=== PATIENT | male | born 1970 | race Caucasian/White ===

== ENCOUNTER → 2017-06-07 | Outpatient (CLI) | payer OTHER | END | disposition home or self-care (01) | LOC: CPPFTMAIN 12:24 | PROVIDERS: ATTEND Internal Medicine Critical Care Medicine | DX: I42.9 Cardiomyopathy, unspecified (principal); R94.2 Abnormal results of pulmonary function studies; R06.02 Shortness of breath | CPT/HCPCS: 94620 ==

== ENCOUNTER → 2023-07-18 | Outpatient (CLI) | payer OTHER ==
--- NOTE | 2023-07-18 15:39 | XR ---
EXAMINATION TYPE: XR elbow complete RT DATE OF EXAM: 07/18/2023 COMPARISON: None HISTORY: Pain TECHNIQUE: 3 view right elbow FINDINGS: Radius aligns normally with the humerus. Anterior fat-pad is normal. No elevation posterior fat pad is evident. No acute displaced fractures are evident. Follow up exams can be performed 7-10 days from acute trauma for continued pain. IMPRESSION: 1. Normal three-view right elbow
[2023-07-18 20:26] LABS: INR 1.59 sec (0.93-1.11); Prothrombin Time 16.7 sec (9.9-11.9)
== END | disposition home or self-care (01) ==
LOC: RADXRMAIN 15:10
PROVIDERS: ATTEND Family Medicine
DX: M25.521 Pain in right elbow (principal)
CPT/HCPCS: 85610

== ENCOUNTER → 2023-09-13 | Outpatient (CLI) | payer OTHER ==
[2023-09-13 19:34] LABS: ALT 26 U/L (10-49); AST 26 U/L (14-35); Albumin 4.7 g/dL (3.8-4.9); Albumin/Globulin Ratio 1.57 Ratio (1.60-3.17); Alkaline Phosphatase 75 U/L (41-126); Blood Urea Nitrogen 17.1 mg/dL (9.0-27.0); Calcium 9.5 mg/dL (8.7-10.3); Carbon Dioxide 29.7 mmol/L (21.6-31.8); Chloride 97 mmol/L (96-109); Chol/HDL Ratio 2.65 Ratio; Glucose 91 mg/dL (70-110); LDL Cholesterol,Calculated 93.7 mg/dL (0.0-131.0); Potassium 4.5 mmol/L (3.5-5.5); Sodium 137 mmol/L (135-145); Total Bilirubin 0.7 mg/dL (0.3-1.2); Total Protein 7.7 g/dL (6.2-8.2)
[2023-09-14 03:55] LABS: INR 3.34 sec (0.93-1.11); Prothrombin Time 33.3 sec (9.9-11.9)
== END | disposition home or self-care (01) ==
LOC: LABWHC1 13:53
PROVIDERS: ATTEND Family Medicine
DX: Q87.40 Marfan syndrome, unspecified (principal); M54.9 Dorsalgia, unspecified; R53.82 Chronic fatigue, unspecified
CPT/HCPCS: 36415; 80053; 80061; 84402; 85610

== ENCOUNTER → 2024-06-17 | Outpatient (CLI) | payer OTHER ==
[2024-06-17 18:58] LABS: Chol/HDL Ratio 3.09 Ratio; LDL Cholesterol,Calculated 113.3 mg/dL (0.0-131.0); VLDL Calculation 18.54 mg/dL (5.00-40.00)
== END | disposition home or self-care (01) ==
LOC: LABWHC1 14:46
PROVIDERS: ATTEND Family Medicine
DX: I50.9 Heart failure, unspecified
CPT/HCPCS: 36415; 80061